=== PATIENT | male | born 1990 | race Caucasian/White ===

== ENCOUNTER 2017-01-03 09:57 | Emergency (ER) | payer OTHER ==
[2014-12-02 09:50] VITALS: BMI 23.7
[~2017-01-03 09:57] MED LIST: HYDROCODONE-APA1 TAB PO
== END 2017-01-03 12:37 | disposition home or self-care (01) ==
LOC: D.ER 09:57
DX: S39.012A Strain of muscle, fascia and tendon of lower back, initial encounter (principal); X58.XXXA Exposure to other specified factors, initial encounter; Y93.89 Activity, other specified; Y92.89 Other specified places as the place of occurrence of the external cause